=== PATIENT | female | born 1965 | race Caucasian/White ===

== ENCOUNTER 2017-08-05 07:00 | Day surgery (SDC) | payer OTHER ==
[~2017-08-05 07:00] MED LIST: NOLVADEX10 MG PO; SYNTHROID137 MCG PO
== END 2017-08-05 15:00 | disposition home or self-care (01) ==
LOC: EDSTATUS 07:00 → SURG 07:00 → CIR.AMB 07:00 → O/R 12:35 → EDSTATUS 14:16 → CIR.AMB 14:16 → SURG 14:17 → CIR.AMB 15:00
DX: L91.0 Hypertrophic scar (principal); Z90.13 Acquired absence of bilateral breasts and nipples